=== PATIENT | male | born 1985 | race Caucasian/White ===

== ENCOUNTER 2017-02-02 18:17 | Emergency (ER) | payer OTHER ==
[~2017-02-02] VITALS: Ht 180.3 cm; Wt 129.3 kg
[~2017-02-02 18:17] MED LIST: /ACETCOD2T PO; /PANT40TA OR; ABIL2TAB2 PO; ABIL400I IM; ATIV1TAB2 OR; BENT20TA OR; BISA5TA OR; CIPR25SS OR; FLAG500T OR; KEFL500C OR; LOPR50TA OR; METH5TAB2 OR; MULTIVIT OR; MULTIVIT PO; NAPR250T2 PO; NEUR300C OR; NICO7DIS4 TD; PAXI20TA3 PO; PERC5TAB8 OR; PERC7.5T8 OR; POTA10CA2 OR; RISP2TAB12 OR; THIA100T OR; TRAZ50TA OR; TRAZ50TA2 PO; VITA-113 SUBQ; ZOLO100T OR; ZOLO100T PO; ZOLO50TA OR; ZONISAMIDE PO; no current meds
[2017-02-02 18:30] VITALS: BP 123/60
[2017-02-02] MEDS ORDERED: ZYPR15TA PO (18:37)
[2017-02-02] MEDS ORDERED: ZONI100C2 PO (18:45)
[2017-02-02] MEDS ORDERED: ZONISAMIDE 100 MG CAP (ZONEGRAN) PO SCH (21:00)
== END 2017-02-02 19:26 | disposition home or self-care (01) ==
LOC: M ED 19:19
DX: G40.909 Epilepsy, unspecified, not intractable, without status epilepticus (principal); F17.210 Nicotine dependence, cigarettes, uncomplicated

== ENCOUNTER → 2017-02-03 | Outpatient (REF) | payer OTHER ==
[~2017-02-03] MED LIST changes: +ZONI100C2 PO; +ZYPR15TA PO
[2017-02-03 15:45] LABS: BASO % 0.5 % (0.0-1.0); EOS # 0.1 K/mm3 (0.0-0.50); EOS % 1.3 % (0.0-3.0); LARGE UNSTAINED CELL # 0.1 K/mm3 (0.0-0.4); LARGE UNSTAINED CELL % 1.8 % (0.0-4.0); LYMPH # 2.2 K/mm3 (1.5-4.5); MEAN CORPUSCULAR HEMOGLOBIN 30.2 pg (27.0-33.0); MEAN CORPUSCULAR HGB CONC 33.7 g/dl (32.0-36.5); MEAN CORPUSCULAR VOLUME 89.6 fl (80.0-96.0); MONO # 0.5 K/mm3 (0.0-0.8); MONO % 7.2 % (0.0-5.0); NEUTROPHILS # 4.5 K/mm3 (1.8-7.7); NEUTROPHILS % 61.2 % (36.0-66.0); PLATELET COUNT, AUTOMATED 261 k/mm3 (150-450); RED CELL DISTRIBUTION WIDTH 13.4 % (11.5-14.5); WHITE BLOOD COUNT 7.4 K/mm3 (4.0-10.0)
[2017-02-03 16:23] LABS: ALBUMIN/GLOBULIN RATIO 1.29 (1.00-1.93); ALKALINE PHOSPHATASE 93 U/L (45-117); ALT/SGPT 128 U/L (12-78); ANION GAP 6 MEQ/L (8-16); AST/SGOT 53 U/L (15-37); BILIRUBIN,TOTAL 0.8 MG/DL (0.2-1.0); BLOOD UREA NITROGEN 12 MG/DL (7-18); CALCIUM LEVEL 8.6 MG/DL (8.5-10.1); CARBON DIOXIDE LEVEL 31 MEQ/L (21-32); CHLORIDE LEVEL 106 MEQ/L (98-107); CREATININE FOR GFR 0.75 MG/DL (0.70-1.30); GLOMERULAR FILTRATION RATE > 60.0 (>60); GLUCOSE, FASTING 71 MG/DL (70-105); POTASSIUM SERUM 4.2 MEQ/L (3.5-5.1); SODIUM LEVEL 143 MEQ/L (136-145); TOTAL PROTEIN 7.1 GM/DL (6.4-8.2)
[2017-02-04 08:04] LABS: GAMMA GLUTAMYLTRANSPEPTIDASE 90 U/L (15-85)
[2017-02-04 14:18] LABS: CONTROL LINE INT CTR LINE PRESENT; HIV SCRN NEGATIVE (NEGATIVE); HIV SCRN1 NEGATIVE (NEGATIVE)
== END ==
LOC: M SFHCPLAZ 14:46
PROVIDERS: ATTEND Nurse Practitioner Family
DX: R53.83 Other fatigue (principal)

== ENCOUNTER → 2017-02-09 | Outpatient (CLI) | payer OTHER ==
--- NOTE | 2017-02-09 08:49 | REP ---
Clinical: Abdominal pain and elevated liver function tests. Technique: Real time cummins scale ultrasound evaluation using curved array transducer. Findings: Fatty infiltration to the liver is appreciated with focal fatty sparing. No focal hepatic or pancreatic lesions are identified. The gallbladder is normal and without gallstones, wall thickening, or pericholecystic fluid. No biliary ductal dilatation is appreciated and the common bile duct measures 4.8 mm diameter. Right kidney is without hydronephrosis and measures 13.7 x 6.6 x 4.7 cm with possible partial duplication suggested. No ascites. Impression: Fatty infiltration to the liver without focal hepatic lesion. Normal gallbladder and biliary system. Signed by Omero Nam MD 02/09/2017 08:40 A
== END ==
LOC: M RAD 07:20
PROVIDERS: ATTEND Nurse Practitioner Family
DX: R94.5 Abnormal results of liver function studies (principal)

== ENCOUNTER → 2017-03-22 | Outpatient (REF) | payer OTHER ==
[2017-03-22 13:24] LABS: MEAN CORPUSCULAR HEMOGLOBIN 29.9 pg (27.0-33.0); MEAN CORPUSCULAR HGB CONC 34.5 g/dl (32.0-36.5); MEAN CORPUSCULAR VOLUME 86.8 fl (80.0-96.0); RED CELL DISTRIBUTION WIDTH 13.5 % (11.5-14.5); WHITE BLOOD COUNT 8.1 K/mm3 (4.0-10.0)
[2017-03-22 14:04] LABS: ALBUMIN 3.8 GM/DL (3.2-5.2); ALBUMIN/GLOBULIN RATIO 1.23 (1.00-1.93); BILIRUBIN,DIRECT 0.1 MG/DL (0.0-0.2); BILIRUBIN,TOTAL 0.6 MG/DL (0.2-1.0); TOTAL PROTEIN 6.9 GM/DL (6.4-8.2)
== END ==
LOC: M SFHCPLAZ 11:27
PROVIDERS: ATTEND Family Medicine
DX: K62.5 Hemorrhage of anus and rectum (principal); K76.0 Fatty (change of) liver, not elsewhere classified

== ENCOUNTER 2017-05-18 12:10 | Inpatient (IN) | payer OTHER ==
[~2017-05-18] VITALS: Ht 182.9 cm; Wt 135.3 kg
[2017-05-18] MEDS ORDERED: MICO2CRE33 TOP (12:23)
[2017-05-18] MEDS ORDERED: RISP2TAB30 PO (12:23)
[2017-05-18] MEDS ORDERED: FLUTISP (12:23)
[2017-05-18] MEDS ORDERED: SERT50TA PO (12:23)
[2017-05-18 13:13] LABS: MEAN CORPUSCULAR HEMOGLOBIN 30.7 pg (27.0-33.0); MEAN CORPUSCULAR HGB CONC 35.3 g/dl (32.0-36.5); MEAN CORPUSCULAR VOLUME 86.7 fl (80.0-96.0); RED CELL DISTRIBUTION WIDTH 13.6 % (11.5-14.5); WHITE BLOOD COUNT 9.1 K/mm3 (4.0-10.0)
[2017-05-18 13:33] LABS: METHADONE URINE NEGATIVE (NEGATIVE)
[2017-05-18 13:45] LABS: ALBUMIN 4.1 GM/DL (3.2-5.2); ALBUMIN/GLOBULIN RATIO 1.46 (1.00-1.93); ALKALINE PHOSPHATASE 73 U/L (45-117); ALT/SGPT 48 U/L (12-78); ANION GAP 6 MEQ/L (8-16); AST/SGOT 25 U/L (15-37); BILIRUBIN,DIRECT 0.2 MG/DL (0.0-0.2); BILIRUBIN,TOTAL 0.8 MG/DL (0.2-1.0); BLOOD UREA NITROGEN 13 MG/DL (7-18); CALCIUM LEVEL 9.1 MG/DL (8.5-10.1); CARBON DIOXIDE LEVEL 22 MEQ/L (21-32); CHLORIDE LEVEL 111 MEQ/L (98-107); CREATININE FOR GFR 0.86 MG/DL (0.70-1.30); GLOMERULAR FILTRATION RATE > 60.0 (>60); GLUCOSE, FASTING 92 MG/DL (70-105); POTASSIUM SERUM 3.8 MEQ/L (3.5-5.1); SODIUM LEVEL 139 MEQ/L (136-145); TOTAL PROTEIN 6.9 GM/DL (6.4-8.2)
[2017-05-18] MEDS ORDERED: RISP1TAB3 PO (16:53)
[2017-05-18] MEDS ORDERED: ZONI100C2 PO (16:53)
[2017-05-18 18:47] VITALS: BP 115/68
[2017-05-18] MEDS ORDERED: traZODone 50 MG TAB PO PRN (21:15)
[2017-05-18] MEDS ORDERED: MOM 30ML SUSPENSION UDC PO PRN (21:15)
[2017-05-18] MEDS ORDERED: ACETAMINOPHEN TAB 650MG DOSE (2X325MG) PO PRN (21:15)
[2017-05-18] MEDS ORDERED: MAALOX 30 ML SUSP *UDC PO PRN (21:15)
[2017-05-18] MEDS: risperiDONE 1 MG TAB PO SCH (22:35)
[2017-05-18] MEDS: ZONISAMIDE 100 MG CAP (ZONEGRAN) PO SCH (22:35)
[2017-05-19 06:33] VITALS: BP 98/64
[2017-05-19] MEDS: risperiDONE 1 MG TAB PO SCH ×2 (08:09→21:02)
[2017-05-19] MEDS: FLUTICASONE PROP 0.05% NASAL SPRAY 16 GM (FLONASE) SCH (08:09)
[2017-05-19] MEDS: NICOTINE 21MG/24HR 1 EA TRANSDERMAL TD SCH (08:10)
--- NOTE | 2017-05-19 08:29 | HPEPDOC ---
Medical History and Physical Date of Admission May 18, 2017 at 16:22 History and Physical PCP: Dr Olivo ATTENDING: Dr. Roldan Olsen HPI: 31yoM admitted to [facility] for unspecified depressive disorder, being medically examined today. No acute medical complaints today. The patient states he cannot recall his last seizure. He was seen by his PCP 04/27/17 with notation that the patient had been off Zonegran for approximately 3 months and had a breakthrough seizure off medication. Denies any fevers, chills, weakness, fatigue, TAYLOR, CP, SOB, cough, palpitations, abdominal pain, N/V/D or changes in bowel or bladder habits. PMHx: Asthma Vitamin D deficiency Bipolar disorder Seizure disorder. Pt states he cannot recall his last seizure. Migraine headaches Obesity. BMI 39.1 History of substance use Tobacco use PSHX: Tonsillectomy 2003 Right first toe nail avulsion with chemical matrixectomy 12/10 Left first toe nail avulsion with chemical matrixectomy 03/10 SOCHX: Resides in: [place] Marital Status: Single Kids: 4 Employment: Unemployed Tobacco use: 1 pack per day ETOH: Denies Illicit Drugs: Denies currently. History of opioid and marijuana use. Attends [employer]. IV Drug Use: Denies Tattoos done unprofessionally: 4 FAMHX: Mother: 52 Alive, seizure, anxiety, depression Father: 54 Alive, well Siblings: One brother secondary to suicide, one half brother Alive, well. One half sister with history of bipolar disorder. Children: Alive, well Unexpected deaths due to medical reasons: None. ROS: As noted in HPI, otherwise 11pt ROS of systems reviewed and unremarkable. PE: GEN: 31yoM, appears stated age. Well-nourished, well developed. No acute distress. Alert and oriented x 3. Pleasant, interactive. HEENT: Normocephalic, atraumatic. Pupils are equal, round, and reactive to light. Extraocular movements are intact. No nystagmus appreciated. Sclera are nonicteric. Conjunctiva without injection. Nose midline. Nasal turbinates without bogginess. EACs both patent BL. TMs both visualized and cummins with good cone of light, no bulging or erythema. No facial asymmetry. Moist mucous membranes. Dentition fair. Pharynx pink and moist, no cobblestoning. Neck supple , trachea midline. No lymphadenopathy or thyromegaly appreciated. CHEST: Regular rate and rhythm, +S1, +S2 LUNGS: Clear to auscultation bilaterally. No wheezes, rales, or rhonchi. Breathing appears symmetric and easy. Patient is speaking in full sentences. No accessory muscle use. ABD: Round, soft, non-tender, non-distended. +Bowel sounds throughout. No rebound or guarding. No costovertebral angle tenderness. EXT: Pulses 2+ bilaterally dorsalis pedis and radial. No lower extremity edema appreciated. SKIN: [place], dry, warm. Capillary refill <2sec. No rashes. NEURO: Alert and oriented x 3. Cranial nerves III-XII are intact. No focal deficits appreciated. EKG: pending. A&P: 31yoM admitted to [facility] for unspecified depressive disorder, 1. Psych. Plan per Psychiatry. Obtain baseline EKG to assure the safety of psychiatric medications as they can prolong the QT interval. 2. Nicotine dependence. Patch available. 3. Allergic rhinitis. Continue Flonase. 4. Follow up with Dr. Olivo on discharge. 5. Asthma. Continue Ventolin as needed. 6. Seizure disorder. Continue Zonegran 200mg daily. 7. Migraine headache. Controlled. Continue Tylenol as needed 8. History of tattoo done unprofessionally. Patient has had HIV/hepatitis screening 02/12. Declines rescreening. 9. Staff member Ed present throughout exam. Vital Signs Vital Signs Date Time Temp Pulse Resp B/P (MAP) Pulse Ox O2 Delivery O2 Flow Rate FiO2 05/19/17 06:33 97.8 63 16 98/64 (75) 05/18/17 18:47 96 Room Air Laboratory Data Labs 24H Laboratory Tests 2 05/18/17 12:57: Anion Gap 6L, Glomerular Filtration Rate > 60.0, Calcium Level 9.1, Aspartate Amino Transf (AST/SGOT) 25, Alanine Aminotransferase (ALT/SGPT) 48, Alkaline Phosphatase 73, Total Bilirubin 0.8, Direct Bilirubin 0.2, Total Protein 6.9, Albumin 4.1, Albumin/Globulin Ratio 1.46, Thyroid Stimulating Hormone (TSH) 1.120, Salicylates Level 2.1L, Acetaminophen Level < 2.0L, Ethyl Alcohol Level 0.004 05/18/17 12:58: Urine Amphetamines Screen NEGATIVE, Urine Benzodiazepines Screen POSITIVEH, Urine Opiates Screen NEGATIVE, Urine Methadone Screen NEGATIVE, Urine Barbiturates Screen NEGATIVE, Urine Phencyclidine Screen NEGATIVE, Urine Cocaine Metabolite Screen NEGATIVE, Urine Cannabinoids Screen NEGATIVE CBC/BMP Laboratory Tests 05/18/17 12:57 05/18/17 12:58 Red Blood Count 4.73, Mean Corpuscular Volume 86.7, Mean Corpuscular Hemoglobin 30.7, Mean Corpuscular Hemoglobin Concent 35.3, Red Cell Distribution Width 13.6 Home Medications Scheduled (Risperidone) 1 Mg Tab, 1 MG PO BID Fluticasone Propionate (Fluticasone Propionate) 50 Mcg/Act Spr, 1 SPRAY NA DAILY Sertraline Hcl (Sertraline HCl) 50 Mg Tab, 150 MG PO DAILY Zonisamide (Zonisamide) 100 Mg Cap, 200 MG PO QHS Allergies Coded Allergies: No Known Allergies (Verified , 12/26/10) Martha Worrell May 19, 2017 08:29
[2017-05-19] MEDS ORDERED: ALBUTEROL 90 MCG/ACT 8GM HFA INHALER INH PRN (08:30)
[2017-05-19] MEDS ORDERED: SERTRALINE HCL 50 MG TAB PO SCH (09:00)
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
[2017-05-19 18:58] VITALS: BP 101/49
[2017-05-19] MEDS: ZONISAMIDE 100 MG CAP (ZONEGRAN) PO SCH (21:02)
[2017-05-20 06:29] VITALS: BP 97/50
[2017-05-20] MEDS: FLUTICASONE PROP 0.05% NASAL SPRAY 16 GM (FLONASE) SCH (08:17)
[2017-05-20] MEDS: risperiDONE 1 MG TAB PO SCH ×2 (08:17→20:51)
[2017-05-20] MEDS: SERTRALINE 100 MG TAB PO SCH (08:17)
[2017-05-20] MEDS: NICOTINE 21MG/24HR 1 EA TRANSDERMAL TD SCH (08:18)
[2017-05-20 18:00] VITALS: BP 116/62
[2017-05-20] MEDS: ZONISAMIDE 100 MG CAP (ZONEGRAN) PO SCH (20:51)
--- NOTE | 2017-05-21 00:19 | ECGEPIP ---
Stationary ECG Study [facility] Test Date: 2017-05-19 Pat Name: JAMIE HIGH Department: Room: [place] [address] Gender: M [place]: : 1985 Requested By: Martha Worrell Order Number: [id number] Reading MD: Kevon Pierce Measurements Intervals [place] Rate: 61 P: 39 MI: 124 QRS: 2 QRSD: 114 T: 7 QT: 410 QTc: 416 Interpretive Statements SINUS RHYTHM POSSIBLE RIGHT VENTRICULAR CONDUCTION DELAY Compared to the last 2 tracings in the system, no significant changes Electronically Signed On 05-21-2017 0:19:24 EDT by Kevon Pierce
[2017-05-21 06:38] VITALS: BP 116/73
[2017-05-21] MEDS: SERTRALINE 100 MG TAB PO SCH (09:58)
[2017-05-21] MEDS: risperiDONE 1 MG TAB PO SCH ×2 (09:58→21:04)
[2017-05-21] MEDS: FLUTICASONE PROP 0.05% NASAL SPRAY 16 GM (FLONASE) SCH (09:58)
[2017-05-21] MEDS: NICOTINE 21MG/24HR 1 EA TRANSDERMAL TD SCH (09:59)
--- NOTE | 2017-05-21 12:24 | MHIPNPDOC ---
[facility] Progress Note Progress Note DATE OF SERVICE: 05/21/17 LATE ENTRY FOR 05/20/17 HISTORY: day3 of admission/admitted with worsening depression and thoughts of self-harm. VITAL SIGNS: See below. NEW TEST RESULTS: na CURRENT MEDICATIONS: See below. MENTAL STATUS EXAMINATION: Patient is a 31-year old male, who is large in build, spends a good deal of time sleeping on the unit, seclusive to room. Speech: Is spontaneous Language skills are intact Thought processes including: linear Thought content: appropriate Abstract reasoning, and computation: fair. Description of associations: good. Description of abnormal or psychotic thoughts:no current reports of hallucinations, no noticeable delusions, depression is less and suicidal thoughts still present but less. Judgment: limited Insight: poor. Orientation: oriented to person, place, time and situation. Recent and remote memory: intact Attention span and concentration: varies Fund of knowledge: below average Mood: depressed. Affect: congruent DIAGNOSES: Bipolar II disorder, current episode depressed, mild Cannabis abuse in remission alcohol dependence in remission borderline personality disorder by history Major depression with psychotic features by history unemployed financial problems. ASSESSMENT:met with pt for 1:1 in a.m. He reports having nightmares last night. States they happen several times a week. It is not the same dream. It does not cause him to awaken in a panic. He is usually able to go back to sleep. Pt stayed in med all morning but went to group in the afternoon. Adjusting to unit. No difficulties wit n/v/d or constipation. Tolerating medication adjustment with sertraline without difficulty. He understands that med increase may not be detectable for 3-4 weeks when he notices an improvement in his mood. He does feel his depression has improved since being in our care. MANAGEMENT PLAN: Will discuss with pat adding wellbutrin to medication regime to see if this helps with motivation and interest and well as easing of depression. Had not plan to do so at this time but as he is observed it is felt he could use some help in the these areas. TIME SPENT: 15 minutes. Vital Signs Vital Signs Date Time Temp Pulse Resp B/P (MAP) Pulse Ox O2 Delivery O2 Flow Rate FiO2 05/21/17 06:38 98.0 59 16 116/73 (87) 05/18/17 18:47 96 Room Air Current Medications Current Medications Acetaminophen (Tylenol Tab) 650 mg Q6HP PRN PO HEADACHE or DISCOMFORT Last administered on 05/19/17 17:33; Start 05/18/17 at 21:15; Stop 06/17/17 at 21:14 Al Hydrox/Mg Hydrox/Simethicone (Mylanta) 30 ml Q4HP PRN PO HEARTBURN/ INDIGESTION; Start 05/18/17 at 21:15; Stop 06/17/17 at 21:14 Albuterol Sulfate (Proventil, Ventolin Hfa) 2 puff Q4HP PRN INH SHORTNESS OF BREATH; Start 05/19/17 at 08:30; Stop 06/18/17 at 08:29 Fluticasone Propionate (Flonase 0.05% Nasal [place]) 1 spray DAILY NA Last administered on 05/21/17 09:58; Start 05/19/17 at 09:00; Stop 06/18/17 at 08:59 Home Med (Med Rec Complete!) ASDIRECTED XX ; Start 05/18/17 at 17:00; Stop at 17:00; Status DC Magnesium Hydroxide (Milk Of Magnesia) 30 ml DAILYPRN PRN PO CONSTIPATION; Start 05/18/17 at 21:15; Stop 06/17/17 at 21:14 Nicotine (Nicoderm Cq 21mg) 1 patch DAILY TD Last administered on 05/21/17 09: 59; Start 05/19/17 at 09:00; Stop 06/18/17 at 08:59 Risperidone (RisperDAL) 1 mg BID PO Last administered on 05/21/17 09:58; Start 05/18/17 at 21:00; Stop 06/17/17 at 20:59 Sertraline HCl (Zoloft) 150 mg DAILY PO Last administered on 05/19/17 08:10; Start 05/19/17 at 09:00; Stop 05/19/17 at 09:57; Status DC Sertraline HCl (Zoloft) 200 mg DAILY PO Last administered on 05/21/17 09:58; Start 05/20/17 at 09:00; Stop 06/19/17 at 08:59 Trazodone HCl (Desyrel) 50 mg QHSP PRN PO INSOMNIA; Start 05/18/17 at 21:15; Stop 06/17/17 at 21:14 Zonisamide (Zonegran) 200 mg QHS PO Last administered on 05/20/17t 20:51; Start 05/18/17 at 21:00; Stop 06/17/17 at 20:59 Allergies Coded Allergies: No Known Allergies (Verified , 12/26/10) Thelma Cross May 21, 2017 12:24
--- NOTE | 2017-05-21 14:23 | MHIPNPDOC ---
[facility] Progress Note Progress Note DATE OF SERVICE: 05/21/17 HISTORY: day 4 of admission for SI and worsening depression VITAL SIGNS: See below. NEW TEST RESULTS: na CURRENT MEDICATIONS: See below. MENTAL STATUS EXAMINATION: Patient is a 31-year old male, who is wearing hospital attire, short small de la torre , gauges in ear lobes, minimal eye contact, cooperative. Speech: Is coherent Language skills are good. Thought processes including: linear Thought content: appropriate. Abstract reasoning, and computation: good. Description of associations: good. Description of abnormal or psychotic thoughts: decreasing thoughts of suicide, none today. risperidone keeps voices quiet, no perceptual disturbance. Judgment: fair Insight: fair. . Orientation: well oriented in all spheres. Recent and remote memory: intact Attention span and concentration: fair Fund of knowledge: limited Mood: depressed. Affect: congruent. DIAGNOSES: Bipolar II disorder, current episode depressed, mild Cannabis abuse in remission alcohol dependence in remission borderline personality disorder by history Major depression with psychotic features by history unemployed financial problems. ASSESSMENT:met with pt for 1:1 AFTER lunch today. He slept all morning, missing group. Encouraged pt to participate in a.m. and p.m. groups. He says, "i know all those things". He is here again so a refresher would be good for him. Encouraged him to be out of the room and engaged in unit activities and milieu. He agreed. Discussed his apparent lack of interest and motivation. He disagreed with this assessment. Discussed adding Wellbutrin as augmentation for Sertraline. He needs to find a job and get his life on track. He has failed to find work in 11 months. Discussed working 2 part-time jobs. Discussed the important role a father plays in raising children. He states he does want to play a more vital role in his children's upbringing. he states re-uniting with the children's mother "is not an option". pt eating well, attending to hygiene. Denies n/v/d and constipation. Tolerated increase in sertraline from 150 mg to 200 mg. Risks and benefits of Wellbutrin discussed, side effects explained and expected benefit explained. May take 10-14 days or longer before he sees an improvement on the Wellbutrin. Explained s/s of allergic reaction and what to look for and report. MANAGEMENT PLAN: Add Wellbutrin XL to sertraline. Meeting with [facility] on Wednesday 1 p.m. and pt is aware. TIME SPENT: 15 minutes. Vital Signs Vital Signs Date Time Temp Pulse Resp B/P (MAP) Pulse Ox O2 Delivery O2 Flow Rate FiO2 05/21/17 06:38 98.0 59 16 116/73 (87) 05/18/17 18:47 96 Room Air Current Medications Current Medications Acetaminophen (Tylenol Tab) 650 mg Q6HP PRN PO HEADACHE or DISCOMFORT Last administered on 05/19/17 17:33; Start 05/18/17 at 21:15; Stop 06/17/17 at 21:14 Al Hydrox/Mg Hydrox/Simethicone (Mylanta) 30 ml Q4HP PRN PO HEARTBURN/ INDIGESTION; Start 05/18/17 at 21:15; Stop 06/17/17 at 21:14 Albuterol Sulfate (Proventil, Ventolin Hfa) 2 puff Q4HP PRN INH SHORTNESS OF BREATH; Start 05/19/17 at 08:30; Stop 06/18/17 at 08:29 Fluticasone Propionate (Flonase 0.05% Nasal [place]) 1 spray DAILY NA Last administered on 05/21/17 09:58; Start 05/19/17 at 09:00; Stop 06/18/17 at 08:59 Home Med (Med Rec Complete!) ASDIRECTED XX ; Start 05/18/17 at 17:00; Stop at 17:00; Status DC Magnesium Hydroxide (Milk Of Magnesia) 30 ml DAILYPRN PRN PO CONSTIPATION; Start 05/18/17 at 21:15; Stop 06/17/17 at 21:14 Nicotine (Nicoderm Cq 21mg) 1 patch DAILY TD Last administered on 05/21/17 09: 59; Start 05/19/17 at 09:00; Stop 06/18/17 at 08:59 Risperidone (RisperDAL) 1 mg BID PO Last administered on 05/21/17 09:58; Start 05/18/17 at 21:00; Stop 06/17/17 at 20:59 Sertraline HCl (Zoloft) 150 mg DAILY PO Last administered on 05/19/17 08:10; Start 05/19/17 at 09:00; Stop 05/19/17 at 09:57; Status DC Sertraline HCl (Zoloft) 200 mg DAILY PO Last administered on 05/21/17 09:58; Start 05/20/17 at 09:00; Stop 06/19/17 at 08:59 Trazodone HCl (Desyrel) 50 mg QHSP PRN PO INSOMNIA; Start 05/18/17 at 21:15; Stop 06/17/17 at 21:14 Zonisamide (Zonegran) 200 mg QHS PO Last administered on 05/20/17 20:51; Start 05/18/17 at 21:00; Stop 06/17/17 at 20:59 Allergies Coded Allergies: No Known Allergies (Verified , 12/26/10) Thelma Cross May 21, 2017 14:23
[2017-05-21 18:00] VITALS: BP 116/57
[2017-05-21] MEDS: ZONISAMIDE 100 MG CAP (ZONEGRAN) PO SCH (21:04)
[2017-05-22 06:00] VITALS: BP 123/88
[2017-05-22] MEDS: SERTRALINE 100 MG TAB PO SCH (09:03)
[2017-05-22] MEDS: risperiDONE 1 MG TAB PO SCH ×2 (09:03→20:37)
[2017-05-22] MEDS: FLUTICASONE PROP 0.05% NASAL SPRAY 16 GM (FLONASE) SCH (09:03)
[2017-05-22] MEDS: NICOTINE 21MG/24HR 1 EA TRANSDERMAL TD SCH (09:03)
[2017-05-22 18:00] VITALS: BP 129/66
[2017-05-22] MEDS: ZONISAMIDE 100 MG CAP (ZONEGRAN) PO SCH (20:38)
--- NOTE | 2017-05-23 05:43 | IPN ---
DATE OF SERVICE: 05/22/2017 I evaluated a 31-year-old male known for: 1. Bipolar 2 disorder, current episode depressed, mild. 2. Cannabis abuse in remission. 3. Alcohol dependency in remission. 4. Borderline personality disorder by history. 5. Major depression with psychotic features by history. SUBJECTIVE: The patient reported that he is taking Risperdal for auditory hallucinations and he says that he is feeling better. He feels that he is responding to the medication, but he reports that he does not feel that Zoloft is helping him for depression. He reports that he was on 150 mg of Zoloft and recently it was increased to 200, but he does not feel better. Although he denies suicidal and homicidal ideation since 2 days ago, including 05/21 and 05/22. He denies auditory and visual hallucinations. The patient is currently stable, he will continue on same medications, no adjustments required. He will continue talking Risperdal 1 mg by mouth twice a day and sertraline 200 mg by mouth daily for his care providers to consider if increasing the dose or changing the medication as patient reports no major change with Zoloft. Patient is currently stable, will follow him up tomorrow, 05/23/2017.
[2017-05-23 06:00] VITALS: BP 104/56
[2017-05-23] MEDS: SERTRALINE 100 MG TAB PO SCH (08:39)
[2017-05-23] MEDS: NICOTINE 21MG/24HR 1 EA TRANSDERMAL TD SCH (08:39)
[2017-05-23] MEDS: risperiDONE 1 MG TAB PO SCH ×2 (08:39→21:23)
[2017-05-23] MEDS: FLUTICASONE PROP 0.05% NASAL SPRAY 16 GM (FLONASE) SCH (08:39)
[2017-05-23 18:00] VITALS: BP 109/53
[2017-05-23] MEDS: ZONISAMIDE 100 MG CAP (ZONEGRAN) PO SCH (21:23)
[2017-05-24 06:31] VITALS: BP 146/66
[2017-05-24] MEDS: FLUTICASONE PROP 0.05% NASAL SPRAY 16 GM (FLONASE) SCH (08:42)
[2017-05-24] MEDS: SERTRALINE 100 MG TAB PO SCH (08:42)
[2017-05-24] MEDS: risperiDONE 1 MG TAB PO SCH ×2 (08:42→20:34)
[2017-05-24] MEDS: NICOTINE 21MG/24HR 1 EA TRANSDERMAL TD SCH (08:42)
[2017-05-24] MEDS: buPROPion **XL** TABLET 150MG (WELLBUTRIN XL) PO SCH (08:42)
--- NOTE | 2017-05-24 11:00 | MHIPNPDOC ---
[facility] Progress Note Progress Note DATE OF SERVICE: 05/24/17 HISTORY: day 7, pt admitted with SI and plan. VITAL SIGNS: See below. NEW TEST RESULTS: na CURRENT MEDICATIONS: See below. MENTAL STATUS EXAMINATION: Patient is a 31-year old male, who is large in stature, wearing hospital attire , small de la torre, soft spoken. Speech: Is clear, coherent. Language skills are good. Thought processes including: goal oriented. Thought content: appropriate. Abstract reasoning, and computation: concrete Description of associations:good. Description of abnormal or psychotic thoughts: pt hears voices but risperidone has decreased this significantly for him. Not currently symptomatic. depressed mood with poor energy. Judgment: limited Insight: fair. Orientation: well oriented in all spheres. Recent and remote memory: good Attention span and concentration: good Fund of knowledge: full. Mood: euthymic Affect: congruent. DIAGNOSES: ASSESSMENT:pt is tolerating higher dose of sertraline without difficulty. Is not reporting any significant improvement with increase as of yet, understands the medication take several weeks to become effective. No side effects reported or noted. Pt is hopeful that it will be the right choice for him. pt needs encouragement to develop a plan for job hunting and getting a place of his own to live in. pt was less seclusive to room over the holiday, interacting positively with peers and staff, attending programming, encouraged to remain on this course. pt attended discharge planning meeting where he learned he has been discharged early from the [address] 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 He was very upset and crying over this. Uses profanity to express his emotions. His home health care case manager Roz will work on getting him into [facility] but he will need to be out of the hospital to find a place to live. His status as a schedule 1 sex offender will make finding housing that much more difficult for him. Pt states he wants to be discharged to look for housing. He would like to go tomorrow. MANAGEMENT PLAN: add Wellbutrin XL 150 mg to med regime in am.. Risk and benefits discussed in full. continue groups and close observation. TIME SPENT: 25minutes. Vital Signs Vital Signs Date Time Temp Pulse Resp B/P (MAP) Pulse Ox O2 Delivery O2 Flow Rate FiO2 05/24/17 06:31 98.7 63 18 146/66 (92) 05/18/17 18:47 96 Room Air Current Medications Current Medications Acetaminophen (Tylenol Tab) 650 mg Q6HP PRN PO HEADACHE or DISCOMFORT Last administered on 05/19/17 17:33; Start 05/18/17 at 21:15; Stop 06/17/17 at 21:14 Al Hydrox/Mg Hydrox/Simethicone (Mylanta) 30 ml Q4HP PRN PO HEARTBURN/ INDIGESTION; Start 05/18/17 at 21:15; Stop 06/17/17 at 21:14 Albuterol Sulfate (Proventil, Ventolin Hfa) 2 puff Q4HP PRN INH SHORTNESS OF BREATH; Start 05/19/17 at 08:30; Stop 06/18/17 at 08:29 Bupropion HCl (Wellbutrin Xl) 150 mg QAM PO Last administered on 05/24/17 08: 42; Start 05/24/17 at 09:00; Stop 06/23/17 at 08:59 Fluticasone Propionate (Flonase 0.05% Nasal [place]) 1 spray DAILY NA Last administered on 05/24/17 08:42; Start 05/19/17 at 09:00; Stop 06/18/17 at 08:59 Home Med (Med Rec Complete!) ASDIRECTED XX ; Start 05/18/17 at 17:00; Stop at 17:00; Status DC Magnesium Hydroxide (Milk Of Magnesia) 30 ml DAILYPRN PRN PO CONSTIPATION; Start 05/18/17 at 21:15; Stop 06/17/17 at 21:14 Nicotine (Nicoderm Cq 21mg) 1 patch DAILY TD Last administered on 05/24/17 08: 42; Start 05/19/17 at 09:00; Stop 06/18/17 at 08:59 Risperidone (RisperDAL) 1 mg BID PO Last administered on 05/24/17 08:42; Start 05/18/17 at 21:00; Stop 06/17/17 at 20:59 Sertraline HCl (Zoloft) 150 mg DAILY PO Last administered on 05/19/17 08:10; Start 05/19/17 at 09:00; Stop 05/19/17 at 09:57; Status DC Sertraline HCl (Zoloft) 200 mg DAILY PO Last administered on 05/24/17 08:42; Start 05/20/17 at 09:00; Stop 06/19/17 at 08:59 Trazodone HCl (Desyrel) 50 mg QHSP PRN PO INSOMNIA; Start 05/18/17 at 21:15; Stop 06/17/17 at 21:14 Zonisamide (Zonegran) 200 mg QHS PO Last administered on 05/23/17 21:23; Start 05/18/17 at 21:00; Stop 06/17/17 at 20:59 Allergies Coded Allergies: No Known Allergies (Verified , 12/26/10) Thelma Cross May 24, 2017 11:00
[2017-05-24 18:33] VITALS: BP 125/61
[2017-05-24] MEDS: ZONISAMIDE 100 MG CAP (ZONEGRAN) PO SCH (20:34)
[2017-05-25 06:29] VITALS: BP 133/69
[2017-05-25] MEDS: NICOTINE 21MG/24HR 1 EA TRANSDERMAL TD SCH (08:00)
[2017-05-25] MEDS: risperiDONE 1 MG TAB PO SCH (08:01)
[2017-05-25] MEDS: buPROPion **XL** TABLET 150MG (WELLBUTRIN XL) PO SCH (08:01)
[2017-05-25] MEDS: SERTRALINE 100 MG TAB PO SCH (08:01)
[2017-05-25] MEDS: FLUTICASONE PROP 0.05% NASAL SPRAY 16 GM (FLONASE) SCH (08:01)
[2017-05-25] MEDS ORDERED: SERT-138 PO (08:09)
[2017-05-25] MEDS ORDERED: BUPR150T3 PO (08:09)
--- NOTE | 2017-05-25 08:25 | MHDSPDOC ---
[facility] Discharge Summary Discharge Summary DATE OF ADMISSION: May 18, 2017 at 16:22 DATE OF DISCHARGE: May 25, 2017 DISCHARGE DIAGNOSES: REASON FOR ADMISSION: suicidal ideation, worsening depression. CONSULTANTS INVOLVED: na TREATMENT AND PROGRESS ON THE UNIT : pt was admitted for stabilization following an exacerbation of his depressive symptoms. pt was informed that [facility] was [facility] due to his lack of attention to obtaining work, completing his community service hours and planning for relocation after the [facility] residential program was to end for him. He felt overwhelmed by this and came to the hospital with suicidal ideation. He was interested in a medication when interview by telegraphic typewriter repairer. He has been on sertraline and done well for several years. He is completely free of alcohol abuse and 11 months clean from cannabis use. Pt has 4 children who live in the area. Pt adjusted to the unit but required lots of prompting to get up, attend programming and leave his room. Pt preferred to sleep in everyday, much like what was being observed at the [facility]. Machine Clipper discussed observations of lack of interest and motivation and recommended Wellbutrin be added to his medication profile as a means to help Rafy take control of the things he was supposed to be doing. He seemed surprise by this observation but was cooperative to the plan. HOSPITAL COURSE: No change to pts antipsychotic medication. Pt affirms that Risperidone 1 mg bid has been a significant help to him and he no longer hears voices. He denies any side effects of gynecomastia due to Risperidone. Pt did not have any difficulty with sleep on the unit until the night prior to discharge. He was not a behavioral challenge except for after the discharge planning meeting where he learned [facility] would [facility] He started punching contreras in his room but easily and quickly calmed with staff intervention. No damage to his hands. Machine Clipper met with patient following this disappointing meeting and after he had calmed down he stated, "I' m not going to do anything stupid. I'm not going to use. I'm not going to kill myself or harm myself". He was reminded of the goal to be a positive influence for his children and to keep that thought paramount in his mind. DISCHARGE ASSESSMENT:Pt very much wants to leave today in order to establish his new housing location and proceed with his outpatient treatment. He denies thoughts or intent or plan of self harm or of harming others. He agrees to return to the hospital should he feel overwhelmed or like he may harm himself. Pt is aware he will have 1 week supply of medications with refills for the next 5 weeks. He has an adequate supply of risperidone at the pharmacy and stated he did not need this ordered for him. Since his sertraline was increased and Wellbutrin added, these Meds were ordered. MENTAL STATUS EXAMINATION ON DISCHARGE: Patient is a 31-year old male, who is large in stature, has gauges in his ear lobes, small de la torre, fair eye contact. Speech is spontaneous. Language skills are good. Thought processes including: linear, logical. Thought content: appropriate Abstract reasoning, and computation: good. Description of associations: good. Description of abnormal or psychotic thoughts: no psychotic symptoms reported or observed. Pt denies thoughts of harm toward self or others. Pt states a desire to remain drug free. Judgment: good Insight: fair Orientation to well oriented in all spheres. Recent and remote memory: intact Attention span and concentration: adequate Fund of knowledge: average Mood: euthymic Affect: anxious. MEDICATIONS ON DISCHARGE: sertraline 200 mg daily for depression/anxiety wellbutrin xl 150 mg for depression PLAN/FOLLOWUP ARRANGEMENTS: [facility] outpatient program for MH and [facility] The amount of time spent in the coordination of care for this patient was approximately 30 minutes. Vital Signs/I&Os Vital Signs Date Time Temp Pulse Resp B/P (MAP) Pulse Ox O2 Delivery O2 Flow Rate FiO2 05/25/17 06:29 98.5 75 20 133/69 (90) Medications Scheduled (Risperidone) 1 Mg Tab, 1 MG PO BID, (Reported) Bupropion Hcl (Bupropion HCl Xl) 150 Mg Tab, 150 MG PO QAM for DEPRESSION for 7 Days, #7 Fluticasone Propionate (Fluticasone Propionate) 50 Mcg/Act Spr, 1 SPRAY NA DAILY , (Reported) Sertraline HCl (Sertraline HCl) 100 Mg Tab, 200 MG PO DAILY for MOOD for 7 Days , #7 Zonisamide (Zonisamide) 100 Mg Cap, 200 MG PO QHS, (Reported) Allergies Coded Allergies: No Known Allergies (Verified , 12/26/10) Thelma Cross May 25, 2017 08:25
== END 2017-05-25 11:10 | disposition home or self-care (01) | DRG 753 ==
LOC: M ED 15:42 → M ED INP 16:22 → M PSY 17:12
PROVIDERS: ADMIT Psychiatry & Neurology Psychiatry; ATTEND Psychiatry & Neurology Psychiatry
DX: F31.31 Bipolar disorder, current episode depressed, mild (principal); F10.21 Alcohol dependence, in remission; F60.3 Borderline personality disorder; Z59.9 Problem related to housing and economic circumstances, unspecified; Z91.5 Personal history of self-harm; Z81.8 Family history of other mental and behavioral disorders; Z62.810 Personal history of physical and sexual abuse in childhood; G40.909 Epilepsy, unspecified, not intractable, without status epilepticus; J45.909 Unspecified asthma, uncomplicated; E55.9 Vitamin D deficiency, unspecified; G43.909 Migraine, unspecified, not intractable, without status migrainosus; E66.9 Obesity, unspecified; Z68.39 Body mass index [BMI] 39.0-39.9, adult; F17.210 Nicotine dependence, cigarettes, uncomplicated; Z81.1 Family history of alcohol abuse and dependence; Z79.899 Other long term (current) drug therapy; Z65.0 Conviction in civil and criminal proceedings without imprisonment

== ENCOUNTER 2017-08-06 17:00 | Emergency (ER) | payer OTHER ==
[~2017-08-06] VITALS: Ht 182.9 cm; Wt 136.4 kg
[~2017-08-06 17:00] MED LIST changes: +ABIL1TAB13 PO; -ABIL2TAB2 PO; +BUPR150T3 PO; +FLUTISP; +MICO2CRE33 TOP; +RISP1TAB3 PO; +RISP2TAB32 PO; +SERT-138 PO; +SERT50TA PO
[2017-08-06] MEDS ORDERED: RISP2TAB32 PO (17:05)
[2017-08-06] MEDS ORDERED: NS 1,000 ML IV ONE (18:30)
[2017-08-06] MEDS ORDERED: METOCLOPRAMIDE INJ 10MG/2ML VIAL (J2765) IV ONE (18:30)
[2017-08-06] MEDS ORDERED: KETOROLAC 30 MG/ML VIAL (J1885) IV ONE (18:30)
[2017-08-06 19:09] VITALS: BP 123/67
== END 2017-08-06 19:16 | disposition home or self-care (01) ==
LOC: M ED 17:00
DX: G43.909 Migraine, unspecified, not intractable, without status migrainosus (principal); Z72.0 Tobacco use
CPT/HCPCS: 96361; 96374; 96375; 99283; J1885; J2765

== ENCOUNTER 2017-08-09 14:54 | Emergency (ER) | payer OTHER ==
[~2017-08-09] VITALS: Ht 182.9 cm; Wt 136.4 kg
[2017-08-09 17:35] LABS: BASO % 0.3 % (0.0-1.0); EOS # 0.1 K/mm3 (0.0-0.50); EOS % 1.6 % (0.0-3.0); LARGE UNSTAINED CELL # 0.1 K/mm3 (0.0-0.4); LARGE UNSTAINED CELL % 1.5 % (0.0-4.0); LYMPH # 2.1 K/mm3 (1.5-4.5); LYMPH % 28.7 % (24.0-44.0); MEAN CORPUSCULAR HEMOGLOBIN 31.3 pg (27.0-33.0); MEAN CORPUSCULAR HGB CONC 34.8 g/dl (32.0-36.5); MEAN CORPUSCULAR VOLUME 90.1 fl (80.0-96.0); MONO # 0.4 K/mm3 (0.0-0.8); NEUTROPHILS # 4.6 K/mm3 (1.8-7.7); PLATELET COUNT, AUTOMATED 301 k/mm3 (150-450); RED CELL DISTRIBUTION WIDTH 12.9 % (11.5-14.5); WHITE BLOOD COUNT 7.4 K/mm3 (4.0-10.0)
[2017-08-09 18:09] VITALS: BP 118/74
[2017-08-09] MEDS ORDERED: CYCL10TA PO (18:09)
--- NOTE | 2017-08-09 18:10 | REP ---
Clinical: Neck pain. Technique: AP, lateral, open mouth views of the cervical spine. Findings: Alignment is maintained. Straightening of normal lordosis is a nonspecific finding, but possibly related to pain and spasm. There is no evidence for acute fracture / compression injury or subluxation. Vertebral bodies and disc spaces are relatively well maintained and normal for age by radiographic evaluation. Spinous processes are intact. Open mouth view demonstrates normal C1-C2 articulation and odontoid process. Prevertebral soft tissues are normal. Impression: Straightening of normal lordosis. Otherwise relatively age-appropriate cervical spine by radiographic evaluation. Signed by Omero Nam MD 08/09/2017 06:02 P
== END 2017-08-09 18:15 | disposition home or self-care (01) ==
LOC: M ED 14:54
DX: S16.1XXA Strain of muscle, fascia and tendon at neck level, initial encounter (principal); X58.XXXA Exposure to other specified factors, initial encounter; Y92.89 Other specified places as the place of occurrence of the external cause; Y93.89 Activity, other specified; Y99.9 Unspecified external cause status

== ENCOUNTER 2017-12-24 17:21 | Emergency (ER) | payer OTHER ==
[2017-12-24] MEDS: NS 1,000 ML IV (19:30)
[2017-12-24 19:36] LABS: BASO % 0.4 % (0.0-1.0); EOS % 0.2 % (0.0-3.0); HEMATOCRIT 41.5 % (42.0-52.0); HEMOGLOBIN 14.5 g/dl (14.0-18.0); IMMATURE GRANULOCYTE % 0.5 % (0-0); LYMPH # 1.9 10^3/uL (1.5-4.5); LYMPH % 23.4 % (24.0-44.0); MEAN CORPUSCULAR HGB CONC 34.9 g/dl (32.0-36.5); MEAN CORPUSCULAR VOLUME 85.9 fl (80.0-96.0); MONO # 0.6 10^3/uL (0.0-0.8); MONO % 6.8 % (0.0-5.0); NEUTROPHILS # 5.7 10^3/uL (1.8-7.7); NEUTROPHILS % 68.7 % (36.0-66.0); PLATELET COUNT, AUTOMATED 337 10^3/uL (150-450); RED BLOOD COUNT 4.83 10^6/uL (4.30-6.10); RED CELL DISTRIBUTION WIDTH 12.8 % (11.5-14.5); WHITE BLOOD COUNT 8.2 10^3/uL (4.0-10.0)
[2017-12-24 19:41] LABS: INR 1.03; PROTHROMBIN TIME 13.6 SECONDS (12.4-14.5)
[2017-12-24 19:42] LABS: PARTIAL THROMBOPLASTIN TIME 30.8 SECONDS (26.8-37.9)
[2017-12-24 19:44] LABS: KETONE, URINE AUTO RFX NEGATIVE (NEGATIVE); LEUKOCYTE ESTERASE UR AUTO RFX NEGATIVE (NEGATIVE); MUCUS, URINE RFX SMALL (NEGATIVE); NITRITE, URINE AUTO RFX NEGATIVE (NEGATIVE); RBC, URINE AUTO RFX 1 /HPF (0-3); SPECIFIC GRAVITY UR AUTO RFX 1.016 (1.002-1.035); SQUAM EPITHELIAL CELL UR AURFX 0 /HPF (0-6); WBC, URINE AUTO RFX 0 /HPF (0-3)
[2017-12-24 19:45] LABS: D-DIMER QUANT < 270.0 ng/ml (<500)
[2017-12-24 20:03] LABS: ANION GAP 7 MEQ/L (8-16); BLOOD UREA NITROGEN 10 MG/DL (7-18); CALCIUM LEVEL 8.8 MG/DL (8.5-10.1); CARBON DIOXIDE LEVEL 25 MEQ/L (21-32); CHLORIDE LEVEL 107 MEQ/L (98-107); CREATININE FOR GFR 0.81 MG/DL (0.70-1.30); FREE T4 1.23 NG/DL (0.76-1.46); GLOMERULAR FILTRATION RATE > 60.0 (>60); GLUCOSE, FASTING 93 MG/DL (70-100); POTASSIUM SERUM 4.1 MEQ/L (3.5-5.1); SODIUM LEVEL 139 MEQ/L (136-145)
[2017-12-24 20:06] LABS: CPK CREATINE PHOSPHOKINASE 128 U/L (39-308); TROPONIN I < 0.02 NG/ML (< 0.10)
[2017-12-24 20:12] LABS: CK-MB VALUE MASS 1.1 NG/ML (0.0-3.6); MB/CK RELATIVE INDEX 0.85 (< OR =4); THYROID STIMULATING HORMONE 0.685 uIU/ML (0.358-3.740)
== END 2017-12-24 21:19 | disposition home or self-care (01) ==
LOC: M ED 17:21
DX: R56.9 Unspecified convulsions (principal); R42 Dizziness and giddiness; J45.909 Unspecified asthma, uncomplicated; K21.9 Gastro-esophageal reflux disease without esophagitis; F20.9 Schizophrenia, unspecified; F41.9 Anxiety disorder, unspecified; F33.9 Major depressive disorder, recurrent, unspecified; G43.909 Migraine, unspecified, not intractable, without status migrainosus; G62.9 Polyneuropathy, unspecified; Z79.899 Other long term (current) drug therapy; F11.21 Opioid dependence, in remission; F12.21 Cannabis dependence, in remission; F17.210 Nicotine dependence, cigarettes, uncomplicated
CPT/HCPCS: 71045

== ENCOUNTER → 2018-02-15 | Outpatient (CLI) | payer OTHER | LOC: M EKG 15:46 | DX: R94.31 Abnormal electrocardiogram [ECG] [EKG] (principal); I45.10 Unspecified right bundle-branch block | CPT/HCPCS: 93005 ==

== ENCOUNTER → 2018-02-15 | Outpatient (REF) | payer OTHER ==
[2018-02-15 17:53] LABS: ALBUMIN 4.2 GM/DL (3.2-5.2); ALKALINE PHOSPHATASE 82 U/L (45-117); ALT/SGPT 64 U/L (12-78); ANION GAP 5 MEQ/L (8-16); AST/SGOT 22 U/L (7-37); BLOOD UREA NITROGEN 12 MG/DL (7-18); CALCIUM LEVEL 8.7 MG/DL (8.5-10.1); CARBON DIOXIDE LEVEL 27 MEQ/L (21-32); CHLORIDE LEVEL 108 MEQ/L (98-107); CHOLESTEROL LEVEL 137 MG/DL (<200); CHOLESTEROL RISK RATIO 3.044 (<5); CREATININE FOR GFR 0.69 MG/DL (0.70-1.30); GLOMERULAR FILTRATION RATE > 60.0 (>60); GLUCOSE, FASTING 84 MG/DL (70-100); HDL CHOLESTEROL 45 MG/DL (>40); LDL CHOLESTEROL 72.2 MG/DL (<100); NON-HDL-C 92 MG/DL; POTASSIUM SERUM 4.3 MEQ/L (3.5-5.1); SODIUM LEVEL 140 MEQ/L (136-145); TOTAL PROTEIN 7.2 GM/DL (6.4-8.2); TRIGLYCERIDES LEVEL 99 MG/DL (<150)
[2018-02-15 17:55] LABS: BASO % 0.3 % (0.0-1.0); EOS # 0.1 10^3/uL (0.0-0.50); EOS % 0.9 % (0.0-3.0); HEMATOCRIT 43.2 % (42.0-52.0); HEMOGLOBIN 15.2 g/dl (14.0-18.0); IMMATURE GRANULOCYTE % 0.6 % (0-3.0); LYMPH # 1.9 10^3/uL (1.5-4.5); LYMPH % 19.8 % (24.0-44.0); MEAN CORPUSCULAR HEMOGLOBIN 30.2 pg (27.0-33.0); MEAN CORPUSCULAR HGB CONC 35.2 g/dl (32.0-36.5); MEAN CORPUSCULAR VOLUME 85.7 fl (80.0-96.0); MONO # 0.7 10^3/uL (0.0-0.8); MONO % 7.5 % (0.0-5.0); NEUTROPHILS # 6.7 10^3/uL (1.8-7.7); NEUTROPHILS % 70.9 % (36.0-66.0); PLATELET COUNT, AUTOMATED 311 10^3/uL (150-450); RED BLOOD COUNT 5.04 10^6/uL (4.30-6.10); RED CELL DISTRIBUTION WIDTH 13.2 % (11.5-14.5); WHITE BLOOD COUNT 9.4 10^3/uL (4.0-10.0)
[2018-02-15 18:19] LABS: APPEARANCE, URINE CLOUDY (CLEAR); BACTERIA, URINE AUTO NEGATIVE (NEGATIVE); BILIRUBIN, URINE AUTO NEGATIVE (NEGATIVE); BLOOD, URINE BLOOD NEGATIVE (NEGATIVE); CALCIUM OXALATE CRYSTALS SMALL; COLOR, URINE AMBER (YELLOW); GLUCOSE, URINE (UA) AUTO NEGATIVE (NEGATIVE); KETONE, URINE AUTO NEGATIVE (NEGATIVE); LEUKOCYTE ESTERASE, URINE AUTO NEGATIVE (NEGATIVE); MUCUS, URINE LARGE (NEGATIVE); NITRITE, URINE AUTO NEGATIVE (NEGATIVE); PROTEIN, URINE AUTO NEGATIVE (NEGATIVE); RBC, URINE AUTO 2 /HPF (0-3); SQUAMOUS EPITHELIAL CELL UR AU 0 /HPF (0-6); WBC, URINE AUTO 1 /HPF (0-3)
[2018-02-15 18:46] LABS: ESTIMATED AVERAGE GLUCOSE 85 MG/DL (60-110); HEMOGLOBIN A1c 4.6 %
[2018-02-15 19:24] LABS: CHLAMYDIA DNA AMPLIFICATION NEGATIVE (NEGATIVE); GC DNA AMPLIFICATION NEGATIVE (NEGATIVE)
[2018-02-16 12:20] LABS: HIV 1&2 SCREEN CENTAUR NEGATIVE (NEGATIVE)
== END ==
LOC: M LAB REF 16:23
DX: Z13.29 Encounter for screening for other suspected endocrine disorder (principal); Z11.3 Encounter for screening for infections with a predominantly sexual mode of transmission; F17.290 Nicotine dependence, other tobacco product, uncomplicated; F31.9 Bipolar disorder, unspecified; Z68.38 Body mass index [BMI] 38.0-38.9, adult
CPT/HCPCS: 84443

== ENCOUNTER 2021-11-07 12:46 | Emergency (ER) | payer OTHER ==
[~2021-11-07] VITALS: Ht 180.3 cm; Wt 101.6 kg
[2021-11-07 12:46] VITALS: BP 123/79
[~2021-11-07 12:46] MED LIST changes: -/ACETCOD2T PO; -/PANT40TA OR; +ACET1TAB15 PO; +BUPR150T12 PO; -BUPR150T3 PO; +CYCL-707 PO; -MICO2CRE33 TOP; +MICO2CRE42 TOP; +PROT1TAB2 OR; +RISP-8 PO; -RISP1TAB3 PO; +SERT-141 PO; -SERT50TA PO; +ZONI100C17 PO; -ZONI100C2 PO
--- OUTSIDE RECORDS SUMMARY | 2021-11-07 12:51 | CCD ---
Author Author [facility] Organization [facility] Address Unknown Phone Unavailable Support Name Relationship Address Phone MATHEW MARLEN Next Of Kin [address] [place] [address] LIDIARavenMARLEN Next Of Kin [address] [place] [address] UNEMPLOYED Next Of Kin - -, - - UE Next Of Kin Unknown Unavailable DISABLED Next Of Kin Unknown Unavailable SIDNEY HIGH Next Of Kin [address] [place] [address] Jojo COTE ECON [address] [place] [address] Unavailable Re-disclosure Warning The records that you are about to access may contain information from federally-assisted alcohol or drug abuse programs. If such information is present, then the following federally mandated warning applies: This information has been disclosed to you from records protected by federal confidentiality rules (42 CFR part 2). The federal rules prohibit you from making any further disclosure of this information unless further disclosure is expressly permitted by the written consent of the person to whom it pertains or as otherwise permitted by 42 CFR part 2. A general authorization for the release of medical or other information is NOT sufficient for this purpose. The Federal rules restrict any use of the information to criminally investigate or prosecute any alcohol or drug abuse patient.The records that you are about to access may contain highly sensitive health information, the redisclosure of which is protected by Article 27-F of the [facility] Public Health law. If you continue you may have access to information: Regarding HIV / AIDS; Provided by facilities licensed or operated by the [facility] Office of Mental Health; or Provided by the [facility] Office for People With Developmental Disabilities. If such information is present, then the following [facility] mandated warning applies: This information has been disclosed to you from confidential records which are protected by state law. State law prohibits you from making any further disclosure of this information without the specific written consent of the person to whom it pertains, or as otherwise permitted by law. Any unauthorized further disclosure in violation of state law may result in a fine or halfway sentence or both. A general authorization for the release of medical or other information is NOT sufficient authorization for further disc losure. Medications No Information Insurance Providers Payer name Policy type / Coverage type Policy ID Covered constitution party ID Covered constitution party's relationship to guzman Policy Guzman Plan Information Managed Care - [facility] P [id number] S [id number] Medicaid S [id number] S [id number] Managed Care - [facility] P [id number] S [id number] [facility]) O [id number] S [id number] UN COMMUNITY PLAN MCDO [id number] SP [id number] UN COMMUNITY PLAN MCDHMO [id number] SP [id number] UN COMMUNITY PLAN MCDO [id number] SP [id number] UN COMMUNITY PLAN MCDO [id number] SP [id number] MEDICAID [id number] SP [id number] [facility]) O [id number] S [id number] BLUE CROSS [employer]ME PLAN [id number] SP [id number] O BLUE [id number] SP [id number] [facility] COMMUNITY PLAN MCDO [id number] SP [id number] ANSI-Commercial [id number] Problems, Conditions, and Diagnoses No Information Surgeries/Procedures No Information Results No Information Social History No Information
[2021-11-07] MEDS ORDERED: IBUP-1114 PO (13:32)
--- NOTE | 2021-11-07 14:38 | REP ---
INDICATION: bruising to bottom of foot after walking. COMPARISON: None. TECHNIQUE: Four views left foot FINDINGS: There is no evidence of acute fracture, dislocation, or intrinsic bone disease. There is mild inferior calcaneal spurring IMPRESSION: No fracture or dislocation. <Electronically signed by Jhonatan Mercado > 11/07/21 1175
--- OUTSIDE RECORDS SUMMARY | 2021-11-07 20:05 | CCD ---
Author Author [facility] Organization [facility] Address Unknown Phone Unavailable Support Name Relationship Address Phone MATHEW MARLEN Next Of Kin [address] [place] [address] LIDIARavenMARLEN Next Of Kin [address] [place] [address] UNEMPLOYED Next Of Kin - -, - - UE Next Of Kin Unknown Unavailable DISABLED Next Of Kin Unknown Unavailable SIDNEY HIGH Next Of Kin [address] [place] [address] Jojo COTE ECON [address] [place] [address] Unavailable Re-disclosure Warning The records that you [...] is protected by Article 27-F of the [facility] Public Health law. If you continue you may have access to information: Regarding HIV / AIDS; Provided by facilities licensed or operated by the [facility] Office of Mental Health; or Provided by the [facility] Office for People With Developmental Disabilities. If such information is present, then the following [facility] mandated warning applies: This information has [...] law may result in a fine or correction sentence or both. A general authorization for the release of medical or other information is NOT sufficient authorization for further disc losure. Medications No Information Insurance Providers Payer name Policy type / Coverage type Policy ID Covered democrat ID Covered democrat's relationship to guzman Policy Guzman Plan Information Managed Care - [facility] P [id number] S [id number] Medicaid S [id number] S [id number] Managed Care - [facility] P [id number] S [id number] [facility]([place]) O [id number] S [id number] UN COMMUNITY PLAN MCDO [id number] SP [id number] UN COMMUNITY PLAN MCDHMO [id number] SP [id number] UN COMMUNITY PLAN MCDO [id number] SP [id number] UN COMMUNITY PLAN MCDO [id number] SP [id number] MEDICAID [id number] SP [id number] [facility]([place]) O [id number] S [id number] BLUE CROSS [employer]ME PLAN [id number] SP [id number] O BLUE [id number] SP [id number] [facility] COMMUNITY PLAN MCDO [id number] SP [id number] ANSI-Commercial [id number] Problems, Conditions, and Diagnoses No Information Surgeries/Procedures No Information Results No Information Social History No Information
== END 2021-11-07 20:09 | disposition left against medical advice (07) ==
LOC: M ED 12:46
DX: Z53.29 Procedure and treatment not carried out because of patient's decision for other reasons (principal)

== ENCOUNTER → 2023-06-21 | Outpatient (REF) | payer OTHER ==
[~2023-06-21] MED LIST changes: +EXCETAB32 PO; +FLUT50SP17; -FLUTISP; +IBUP-1114 PO; -ZONI100C17 PO; +ZONI100C67 PO
[2023-06-29 17:07] LABS: CALPROTECTIN STOOL 39 ug/g (0-120); FATS NEUTRAL Normal (.); FATS TOTAL Normal (.); PANCREATIC ELASTASE STOOL 412 (>200)
== END ==
LOC: M LAB REF 14:44
PROVIDERS: ATTEND Physician Assistant Medical
DX: R19.8 Other specified symptoms and signs involving the digestive system and abdomen (principal)

== ENCOUNTER → 2023-06-23 | Outpatient (CLI) | payer OTHER ==
[2023-06-23 14:49] LABS: HEMATOCRIT 37.1 % (42.0-52.0); HEMOGLOBIN 12.6 g/dl (13.5-17.5); MEAN CORPUSCULAR HEMOGLOBIN 30.3 pg (27.0-33.0); MEAN CORPUSCULAR VOLUME 89.2 fl (80.0-96.0); PLATELET COUNT, AUTOMATED 260 10^3/uL (150-450); RED BLOOD COUNT 4.16 10^6/uL (4.30-6.10); WHITE BLOOD COUNT 5.4 10^3/uL (4.0-10.0)
[2023-06-23 15:18] LABS: IMMUNOGLOBULIN A 265.1 MG/DL (40-350); THYROID STIMULATING HORMONE 1.409 uIU/ML (0.55-4.78)
[2023-06-23 15:19] LABS: FREE T4 1.09 NG/DL (0.89-1.76)
== END ==
LOC: M LAB 14:21
PROVIDERS: ATTEND Physician Assistant Medical
DX: K62.5 Hemorrhage of anus and rectum (principal); R19.8 Other specified symptoms and signs involving the digestive system and abdomen

== ENCOUNTER 2023-08-17 07:08 | Day surgery (SDC) | payer OTHER, SELFPAY ==
[~2023-08-17] VITALS: Ht 177.8 cm; Wt 118.8 kg
[~2023-08-17 07:08] MED LIST changes: +NS 1,000 ML IV ONE
[2023-08-17] MEDS ORDERED: fentaNYL 100 MCG/2 ML INJECTION As Ordered ONE (07:40)
[2023-08-17] MEDS ORDERED: propofoL 500 MG/50 ML VIAL As Ordered ONE (07:40)
[2023-08-17] MEDS ORDERED: LIDOCAINE 2% 100MG/5ML SDV (FOR ANES.) As Ordered ONE (07:48)
[2023-08-17 09:22] VITALS: TEMP 97.8
[2023-08-17 09:50] VITALS: BP 94/54; O2SAT 99
== END 2023-08-17 09:50 | disposition home or self-care (01) ==
LOC: M OPP 07:08
PROVIDERS: ATTEND Internal Medicine Gastroenterology
DX: K63.5 Polyp of colon (principal); K57.30 Diverticulosis of large intestine without perforation or abscess without bleeding; K64.8 Other hemorrhoids; K29.70 Gastritis, unspecified, without bleeding; K44.9 Diaphragmatic hernia without obstruction or gangrene; K29.80 Duodenitis without bleeding; F41.9 Anxiety disorder, unspecified; F32.A Depression, unspecified; G43.909 Migraine, unspecified, not intractable, without status migrainosus; G62.9 Polyneuropathy, unspecified; J45.909 Unspecified asthma, uncomplicated; F17.290 Nicotine dependence, other tobacco product, uncomplicated; Z86.14 Personal history of Methicillin resistant Staphylococcus aureus infection; Z91.040 Latex allergy status; Z79.899 Other long term (current) drug therapy
CPT/HCPCS: 43239; 45385; 88305; J3010

== ENCOUNTER → 2023-10-18 | Outpatient (CLI) | payer OTHER ==
[~2023-10-18] MED LIST changes: -NS 1,000 ML IV ONE
== END ==
LOC: M RAD 15:35
PROVIDERS: ATTEND Physician Assistant Medical
DX: R53.1 Weakness (principal)

== ENCOUNTER 2023-11-13 16:51 | Emergency (ER) | payer OTHER ==
[~2023-11-13] VITALS: Ht 180.3 cm; Wt 121.2 kg
[~2023-11-13 16:51] MED LIST changes: -FLUT50SP17; +FLUTISP
[2023-11-13] MEDS ORDERED: MUCI600T31 PO (18:50)
[2023-11-13] MEDS ORDERED: BENZ200C70 PO (18:50)
[2023-11-13] MEDS ORDERED: OXYM15SP2 (18:50)
[2023-11-13 19:01] VITALS: BP 144/71; TEMP 98.4; O2SAT 97
== END 2023-11-13 19:13 | disposition home or self-care (01) ==
LOC: M ED 16:51
DX: J06.9 Acute upper respiratory infection, unspecified (principal); B34.8 Other viral infections of unspecified site; F17.290 Nicotine dependence, other tobacco product, uncomplicated; Z91.040 Latex allergy status; Z79.82 Long term (current) use of aspirin

== ENCOUNTER 2023-11-19 12:51 | Emergency (ER) | payer OTHER ==
[~2023-11-19] VITALS: Ht 180.3 cm; Wt 120.0 kg
[~2023-11-19 12:51] MED LIST changes: +BENZ200C70 PO; +MUCI600T31 PO; +OXYM15SP2
[2023-11-19 15:12] VITALS: BP 138/78; TEMP 98.5; O2SAT 98
== END 2023-11-19 15:14 | disposition home or self-care (01) ==
LOC: M ED 12:51
DX: M79.645 Pain in left finger(s) (principal); X58.XXXA Exposure to other specified factors, initial encounter; Y92.511 Restaurant or cafe as the place of occurrence of the external cause; Y93.9 Activity, unspecified; Y99.0 Civilian activity done for income or pay; J45.909 Unspecified asthma, uncomplicated; K21.9 Gastro-esophageal reflux disease without esophagitis; F17.290 Nicotine dependence, other tobacco product, uncomplicated; Z79.82 Long term (current) use of aspirin; Z91.040 Latex allergy status

== ENCOUNTER 2024-02-16 10:36 | Emergency (ER) | payer OTHER ==
[~2024-02-16] VITALS: Ht 180.3 cm; Wt 126.3 kg
[~2024-02-16 10:36] MED LIST changes: +RISP-105 PO; -RISP-8 PO
[2024-02-16] MEDS ORDERED: ACET-683 PO (10:45)
[2024-02-16 11:21] LABS: BASO % 0.4 % (0.0-1.0); EOS # 0.1 10^3/uL (0.0-0.5); EOS % 1.7 % (0.0-3.0); HEMATOCRIT 40.2 % (42.0-52.0); LYMPH # 1.2 10^3/uL (1.5-5.0); LYMPH % 15.8 % (24.0-44.0); MEAN CORPUSCULAR HEMOGLOBIN 30.6 pg (27.0-33.0); MEAN CORPUSCULAR HGB CONC 34.8 g/dl (32.0-36.5); MONO # 0.6 10^3/uL (0.0-0.8); NEUTROPHILS # 5.6 10^3/uL (1.5-8.5); NEUTROPHILS % 73.4 % (36.0-66.0); PLATELET COUNT, AUTOMATED 277 10^3/uL (150-450); RED BLOOD COUNT 4.57 10^6/uL (4.30-6.10); WHITE BLOOD COUNT 7.6 10^3/uL (4.0-10.0)
[2024-02-16 11:40] LABS: LIPASE 30 U/L (12-53)
[2024-02-16 11:42] LABS: ALBUMIN 3.7 G/DL (3.2-5.2); ALKALINE PHOSPHATASE 65 U/L (46-116); ALT/SGPT 52 U/L (7.0-40); AST/SGOT 21 U/L (<34); BILIRUBIN,DIRECT 0.4 MG/DL (<0.4); BILIRUBIN,TOTAL 1.2 MG/DL (0.3-1.2); BLOOD UREA NITROGEN 11 MG/DL (9-23); CALCIUM LEVEL 8.6 MG/DL (8.5-10.1); CARBON DIOXIDE LEVEL 26 MMOL/L (20-31); CHLORIDE LEVEL 109 MMOL/L (98-107); CK-MB VALUE MASS 1.9 NG/ML (<3.6); CREATININE FOR GFR 0.65 MG/DL (0.70-1.30); GLOMERULAR FILTRATION RATE > 60.0 (>60); GLUCOSE, FASTING 89 MG/DL (60-100); POTASSIUM SERUM 4.4 MMOL/L (3.5-5.1); SODIUM LEVEL 140 MMOL/L (136-145); TOTAL PROTEIN 6.4 G/DL (5.7-8.2)
[2024-02-16 11:46] LABS: CPK CREATINE PHOSPHOKINASE 291 U/L (46-171); MB/CK RELATIVE INDEX 0.65 (< OR =4)
[2024-02-16] MEDS: KETOROLAC 60MG 2ML VIAL IM ONE (13:30)
[2024-02-16 14:37] VITALS: BP 131/86; TEMP 97.6; O2SAT 98
== END 2024-02-16 14:43 | disposition home or self-care (01) ==
LOC: M ED 10:36
DX: M25.512 Pain in left shoulder (principal); R07.9 Chest pain, unspecified; J45.909 Unspecified asthma, uncomplicated; R56.9 Unspecified convulsions; K21.9 Gastro-esophageal reflux disease without esophagitis; G60.9 Hereditary and idiopathic neuropathy, unspecified; F41.9 Anxiety disorder, unspecified; F32.A Depression, unspecified; F20.9 Schizophrenia, unspecified; F17.200 Nicotine dependence, unspecified, uncomplicated; Z91.040 Latex allergy status; Z79.899 Other long term (current) drug therapy
CPT/HCPCS: 71046; 73030; 80048; 80076; 82550; 82553; 83690; 85025; 93005; 96372; 99284; J1885

== ENCOUNTER 2024-02-21 15:36 | Emergency (ER) | payer OTHER ==
[~2024-02-21] VITALS: Ht 180.3 cm; Wt 127.5 kg
[~2024-02-21 15:36] MED LIST changes: +ACET-683 PO
[2024-02-21 16:53] LABS: BASO % 0.8 % (0.0-1.0); EOS # 0.1 10^3/uL (0.0-0.5); EOS % 2.5 % (0.0-3.0); HEMATOCRIT 38.8 % (42.0-52.0); HEMOGLOBIN 13.4 g/dl (13.5-17.5); LYMPH # 1.2 10^3/uL (1.5-5.0); LYMPH % 24.6 % (24.0-44.0); MEAN CORPUSCULAR HEMOGLOBIN 30.5 pg (27.0-33.0); MEAN CORPUSCULAR HGB CONC 34.5 g/dl (32.0-36.5); MEAN CORPUSCULAR VOLUME 88.4 fl (80.0-96.0); MONO # 0.4 10^3/uL (0.0-0.8); MONO % 7.9 % (2.0-8.0); NEUTROPHILS # 3.1 10^3/uL (1.5-8.5); NEUTROPHILS % 63.2 % (36.0-66.0); PLATELET COUNT, AUTOMATED 295 10^3/uL (150-450); RED BLOOD COUNT 4.39 10^6/uL (4.30-6.10); WHITE BLOOD COUNT 4.8 10^3/uL (4.0-10.0)
[2024-02-21] MEDS: ASPIRIN 81MG CHEW TABLET PO ONE (17:11)
[2024-02-21 17:20] LABS: BLOOD UREA NITROGEN 14 MG/DL (9-23); CALCIUM LEVEL 8.6 MG/DL (8.5-10.1); CARBON DIOXIDE LEVEL 29 MMOL/L (20-31); CHLORIDE LEVEL 107 MMOL/L (98-107); CK-MB VALUE MASS 3.1 NG/ML (<3.6); CPK CREATINE PHOSPHOKINASE 285 U/L (46-171); CREATININE FOR GFR 0.61 MG/DL (0.70-1.30); GLOMERULAR FILTRATION RATE > 60.0 (>60); GLUCOSE, FASTING 89 MG/DL (60-100); MB/CK RELATIVE INDEX 1.08 (< OR =4); POTASSIUM SERUM 4.4 MMOL/L (3.5-5.1); SODIUM LEVEL 139 MMOL/L (136-145)
[2024-02-21] MEDS ORDERED: ISOVUE-370 76% 100ML VIAL As Ordered ONE (17:50)
[2024-02-21 18:16] LABS: MB/CK RELATIVE INDEX 1.1 (< OR =4)
[2024-02-21 18:51] VITALS: O2SAT 99
[2024-02-21 19:00] VITALS: BP 119/76
[2024-02-21 19:15] VITALS: TEMP 98.4
== END 2024-02-21 19:28 | disposition home or self-care (01) ==
LOC: M ED 15:36
DX: R07.9 Chest pain, unspecified (principal); K21.9 Gastro-esophageal reflux disease without esophagitis; J45.909 Unspecified asthma, uncomplicated; G60.9 Hereditary and idiopathic neuropathy, unspecified; F41.9 Anxiety disorder, unspecified; F32.A Depression, unspecified; F20.9 Schizophrenia, unspecified; F17.200 Nicotine dependence, unspecified, uncomplicated; Z91.040 Latex allergy status
CPT/HCPCS: 71045; 71275; 80048; 82550; 82553; 85025; 93005; 93041; 94760; 99285; Q9967

== ENCOUNTER → 2024-02-24 | Outpatient (REF) | payer OTHER ==
[2024-02-24 14:30] LABS: THYROID STIMULATING HORMONE 2.592 uIU/ML (0.55-4.78)
[2024-02-24 14:32] LABS: ALBUMIN 3.8 G/DL (3.2-5.2); ALKALINE PHOSPHATASE 69 U/L (46-116); ALT/SGPT 37 U/L (7.0-40); AST/SGOT 17 U/L (<34); BILIRUBIN,TOTAL 0.8 MG/DL (0.3-1.2); BLOOD UREA NITROGEN 16 MG/DL (9-23); CARBON DIOXIDE LEVEL 28 MMOL/L (20-31); CHLORIDE LEVEL 104 MMOL/L (98-107); CHOLESTEROL LEVEL 124 MG/DL (<200); CHOLESTEROL RISK RATIO 3.37 (<5); CREATININE FOR GFR 0.76 MG/DL (0.70-1.30); GLOMERULAR FILTRATION RATE > 60.0 (>60); GLUCOSE, FASTING 92 MG/DL (60-100); HDL CHOLESTEROL 36.7 MG/DL (>40); LDL CHOLESTEROL 56.9 MG/DL (<100); MAGNESIUM LEVEL 1.9 MG/DL (1.8-2.4); NON-HDL-C 87.3 MG/DL; POTASSIUM SERUM 4.4 MMOL/L (3.5-5.1); SODIUM LEVEL 140 MMOL/L (136-145); TOTAL PROTEIN 6.6 G/DL (5.7-8.2); TRIGLYCERIDES LEVEL 152 MG/DL (<150)
[2024-02-24 15:56] LABS: HEMOGLOBIN A1c 4.8 % (4.0-6.0)
== END ==
LOC: M LAB REF 12:57
PROVIDERS: ATTEND Nurse Practitioner Family
DX: E66.9 Obesity, unspecified (principal); E55.9 Vitamin D deficiency, unspecified

== ENCOUNTER → 2024-04-05 | Outpatient (REF) | payer OTHER | LOC: M SMT 15:23 | PROVIDERS: ATTEND Urology | DX: Z30.2 Encounter for sterilization (principal) ==

== ENCOUNTER 2024-04-08 15:34 | Emergency (ER) | payer OTHER ==
[~2024-04-08] VITALS: Ht 180.3 cm; Wt 128.6 kg
[2024-04-08 18:15] VITALS: BP 135/83; TEMP 97.8; O2SAT 99
== END 2024-04-08 18:23 | disposition home or self-care (01) ==
LOC: M ED 15:34
DX: S93.402A Sprain of unspecified ligament of left ankle, initial encounter (principal); W01.0XXA Fall on same level from slipping, tripping and stumbling without subsequent striking against object, initial encounter; Y92.009 Unspecified place in unspecified non-institutional (private) residence as the place of occurrence of the external cause; Y93.89 Activity, other specified; Y99.9 Unspecified external cause status; Z98.52 Vasectomy status; Z91.040 Latex allergy status; Z79.1 Long term (current) use of non-steroidal anti-inflammatories (NSAID)

== ENCOUNTER → 2024-10-09 | Outpatient (REF) | payer OTHER, MEDICAID ==
[2024-10-09 19:29] LABS: ALBUMIN 3.9 G/DL (3.2-5.2); ALKALINE PHOSPHATASE 69 U/L (40-129); ALT/SGPT 46 U/L (7.0-40); AST/SGOT 21 U/L (<34); BILIRUBIN,TOTAL 1.1 MG/DL (0.3-1.2); BLOOD UREA NITROGEN 12 MG/DL (9-23); CALCIUM LEVEL 9.3 MG/DL (8.5-10.1); CARBON DIOXIDE LEVEL 28 MMOL/L (20-31); CHLORIDE LEVEL 106 MMOL/L (98-107); CHOLESTEROL LEVEL 155 MG/DL (<200); CHOLESTEROL RISK RATIO 3.68 (<5); CREATININE FOR GFR 0.74 MG/DL (0.70-1.30); GLOMERULAR FILTRATION RATE > 60.0 (>60); GLUCOSE, FASTING 103 MG/DL (60-100); HDL CHOLESTEROL 42.1 MG/DL (>40); LDL CHOLESTEROL 84.7 MG/DL (<100); NON-HDL-C 112.9 MG/DL; POTASSIUM SERUM 4.3 MMOL/L (3.5-5.1); SODIUM LEVEL 139 MMOL/L (136-145); TOTAL PROTEIN 7.1 G/DL (5.7-8.2); TRIGLYCERIDES LEVEL 141 MG/DL (<150)
== END ==
LOC: M LAB REF 17:11
PROVIDERS: ATTEND Nurse Practitioner Family
DX: E66.9 Obesity, unspecified (principal)

== ENCOUNTER → 2025-01-24 | Outpatient (CLI) | payer OTHER, MEDICAID | LOC: M WUC 12:47 | PROVIDERS: ATTEND Nurse Practitioner Family | DX: M79.602 Pain in left arm (principal) ==

== ENCOUNTER → 2025-09-04 | Outpatient (CLI) | payer OTHER ==
[~2025-09-04] MED LIST changes: -ABIL400I IM; +ARIP400S IM
== END ==
LOC: M CARPUL 10:06
PROVIDERS: ATTEND Internal Medicine Cardiovascular Disease
DX: R94.31 Abnormal electrocardiogram [ECG] [EKG] (principal); R07.9 Chest pain, unspecified

== ENCOUNTER → 2025-10-30 | Outpatient (CLI) | payer OTHER | LOC: M CARPUL 11:06 | PROVIDERS: ATTEND Internal Medicine Cardiovascular Disease | DX: I45.10 Unspecified right bundle-branch block (principal); I51.7 Cardiomegaly ==